=== PATIENT | male | born 1970 | race African-American/Black ===

== ENCOUNTER 2017-03-21 20:41 | Emergency (ER) | payer OTHER ==
[~2017-03-21] VITALS: Ht 188 cm; Wt 108.9 kg
[~2017-03-21 20:41] MED LIST: ACETAMINOPHEN-1 EAC1 ORAL; AMOX TR-K400 MG/5 M ORAL; BACTRIM DS TAB1 EAC1 ORAL; CEPHALEXIN500 MG ORAL; CYCLOBENZAPRINE10 MG ORAL; HYDROCODON-ACE1 EA15 ORAL; IBUPROFEN600 MG ORAL; NORCO 10-325 T1 EACH ORAL; NORCO 5-325 TA1 EAC1 ORAL
[2017-03-21 21:27] VITALS: BP 128/79
[2017-03-21 21:32] LABS: BASOPHILS % (AUTO) 1.1 % (0.0-2.0); EOSINOPHILS % (AUTO) 2.9 % (0.0-3.0); LYMPHOCYTES % (AUTO) 38.6 % (20.0-45.0); MEAN CORPUSCULAR HEMOGLOBIN 31.2 PG (27.0-31.0); MEAN CORPUSCULAR HGB CONC 33.4 G/DL (32.0-36.0); MEAN CORPUSCULAR VOLUME 93 FL (80-99); MEAN PLATELET VOLUME 8.6 FL (6.5-10.1); MONOCYTES % (AUTO) 9.3 % (1.0-10.0); NEUTROPHILS % (AUTO) 48.1 % (45.0-75.0); PLATELET COUNT 178 K/UL (150-450); RED BLOOD COUNT 4.54 M/UL (4.70-6.10); RED CELL DISTRIBUTION WIDTH 11.7 % (11.6-14.8); WHITE BLOOD COUNT 7.3 K/UL (4.8-10.8)
--- NOTE | 2017-03-21 21:43 | Emergency Room Report ---
History of Present Illness General Chief Complaint: Chest Pain Source: Patient Present Illness HPI This is a 46-year-old male with a history of chronic pain secondary to spinal surgery on his neck. He is taking [place]. He presents with chief complaint of chest pressure since yesterday. Constant in nature. Described as a tightness. No nausea no vomiting. No exertional component. No palpitation. No diaphoresis. No shortness of breath. Has not take anything for it. No radiation to the neck or the arm. never Had this problem before. Allergies: Coded Allergies: No Known Allergies (Unverified , 11/28/14) Patient History Past Medical History: see triage record, old chart reviewed Past Surgical History: other Pertinent Family History: none Social History: Reports: drug use - Marijuana, Denies: smoking Immunizations: other Reviewed Nursing Documentation: PMH: Agreed, PSxH: Agreed Nursing Documentation-PMH Hx Cardiac Problems: Yes - CHF Hx Cancer: No Hx Gastrointestinal Problems: No Hx Neurological Problems: No - spinal meningitis Hx Spinal Cord Injury: Yes - Degenerative Spinal Stenosis Review of Systems Eye: Denies: eye pain, blurred vision ENT: Denies: ear pain, nose congestion, throat swelling Respiratory: Denies: cough, shortness of breath Cardiovascular: Reports: chest pain, Denies: palpitations Gastrointestinal: Denies: abdominal pain, diarrhea, nausea, vomiting Musculoskeletal: Denies: back pain, joint pain Skin: Denies: rash Neurological: Denies: headache, numbness Endocrine: Denies: increased thirst, increased urine Hematologic/Lymphatic: Denies: easy bruising All Other Systems: negative except mentioned in HPI Physical Exam Vital Signs Date Time Temp Pulse Resp B/P (MAP) Pulse Ox O2 Delivery O2 Flow Rate FiO2 03/21/17 20:45 98.2 78 18 138/91 99 Room Air vitals normal Sp02 EP Interpretation: reviewed, normal General Appearance: well appearing, no apparent distress, alert Head: normocephalic, atraumatic Eyes: bilateral eye PERRL, bilateral eye EOMI ENT: hearing grossly normal, normal pharynx Neck: full range of motion, supple, no meningismus Respiratory: chest non-tender, lungs clear, normal breath sounds Cardiovascular #1: regular rate, rhythm, no murmur Gastrointestinal: normal bowel sounds, non tender, no mass, no organomegaly, no bruit, non-distended Musculoskeletal: back normal, gait/station normal, normal range of motion Psychiatric: mood/affect normal Skin: warm/dry Medical Decision Making Diagnostic Impression: Primary Impression: Chest pain Qualified Codes: R07.9 - Chest pain, unspecified ER Course Patient presents with atypical chest pain. Troponin negative but CK and CK-MB slightly elevated. No evidence of PE, dissection, pneumonia to name a few. Because of his symptoms and elevated CK-MB, I wanted to admit the patient or transfer the patient for further workup. Patient said he doesn't want to be admitted or transfer. He said he felt better now. No pain now. He wants to go home. I advised the patient to stay for further workup but he refused. He is competent to make a decision. We'll discharge home. Advised patient to followup with his DrJake in one to 2 days for referral to see a fire fighter. Lab Results Impression labs with elevated CK EKG Diagnostic Results Rate: normal Rhythm: NSR ST Segments: no acute changes ASA given to the pt in ED: Yes Rhythm Strip Diag. Results Rhythm Strip Time: 21:43 EP Interpretation: yes Rate: 70 Rhythm: NSR, no PVC's, no ectopy Chest X-Ray Diagnostic Results Chest X-Ray Diagnostic Results : Chest X-Ray Ordered: Yes # of Views/Limited/Complete: 1 View Indication: Chest Pain EP Interpretation: Yes Interpretation: no consolidation, no effusion, no pneumothorax, no acute cardiopulmonary disease Impression: No acute disease Electronically Signed by: Electronically signed by Lake Thayer MD Last Vital Signs Date Time Temp Pulse Resp B/P (MAP) Pulse Ox O2 Delivery O2 Flow Rate FiO2 03/21/17 21:28 75 19 Room Air 03/21/17 21:27 98.2 128/79 100 Status: improved Disposition: HOME, SELF-CARE Condition: Stable Scripts Aspirin* (ASPIRIN*) 81 Mg Tab.chew 81 MG ORAL DAILY, #30 TAB Prov: LAKE THAYER M.D. 03/22/17 Referrals: [facility],REFERRING (PCP) Patient Instructions: Nonspecific Chest Pain Additional Instructions: Followup your DrJake in one to 2 days. No strenuous activity. Call 911 or return for increasing pain or weakness. Return if symptom worsen. Recommend followup with a fire fighter for further cardiac workup like a stress test. LAKE THAYER M.D. Mar 21, 2017 21:43
[2017-03-21 22:03] LABS: TROPONIN I < 0.30 ng/mL (<=0.30)
[2017-03-21 22:07] LABS: ALANINE AMINOTRANSFERASE 23 U/L (3-41); ALBUMIN/GLOBULIN RATIO 1.3 (1.0-2.7); ANION GAP 10 (5-15); ASPARTATE AMINO TRANSFERASE 38 U/L (5-40); CALCIUM 9.1 mg/dL (8.6-10.2); CARBON DIOXIDE 27 mEQ/L (20-30); CHLORIDE 101 mEQ/L (98-107); CREATININE 1.2 mg/dL (0.7-1.2); GLOMERULAR FILTRATION RATE > 60 mL/min (>60); HEMOLYSIS 4; POTASSIUM 3.7 mEQ/L (3.4-4.9); SODIUM 138 mEQ/L (135-145)
[2017-03-21 22:44] LABS: CKMB 8.3 ng/mL (< 6.7)
[2017-03-22 00:18] LABS: TROPONIN I < 0.30 ng/mL (<=0.30)
[2017-03-22] MEDS ORDERED: ASPIRIN81 MG ORAL (00:31)
[2017-03-22 00:32] LABS: CKMB 7.4 ng/mL (< 6.7)
[2017-03-22 00:48] VITALS: BP 123/82
--- NOTE | 2017-03-22 10:43 | Diagnostic Imaging Report ---
Indication: Chest pain Technique: One view of the chest Comparison: none Findings: Hazy infiltrate is seen in the left midlung periphery. The pleural spaces, right lung are clear. Impression: Hazy left midlung infiltrate, nonspecific and may indicate pneumonia. By clinical findings Findings phoned to Dr. Barron in the emergency room at the time of interpretation
== END 2017-03-22 00:50 | disposition home or self-care (01) ==
LOC: EMR 21:07
DX: R07.89 Other chest pain (principal); I50.9 Heart failure, unspecified; Z98.890 Other specified postprocedural states
CPT/HCPCS: 36415; 71010; 80053; 80300; 82550; 82553; 83880; 84484; 85025; 93005; 96360; 99284

== ENCOUNTER 2017-05-19 02:03 | Emergency (ER) | payer OTHER ==
[~2017-05-19] VITALS: Ht 188 cm; Wt 106.6 kg
[~2017-05-19 02:03] MED LIST changes: +ASPIRIN81 MG ORAL
[2017-05-19 02:15] VITALS: BP 131/96
[2017-05-19] MEDS ORDERED: Norco 5mg/325mg tab ORAL ONE (02:15)
[2017-05-19] MEDS ORDERED: Tetanus/Diptheria/Pertussis Vaccine 0.5ml Syr IM ONE (02:15)
--- NOTE | 2017-05-19 02:26 | Emergency Room Report ---
History of Present Illness General Chief Complaint: Laceration Source: Patient Present Illness HPI Is a 46-year-old male who is right-hand dominant. He presents with chief complaint of finger injury. Onset was acute and occurred just prior to arrival. He accidentally closed her car tate onto his finger. He sustained injury to left ring finger. Pain is severe 10 out of 10. No radiation. No other injury. Movement made it worse Allergies: Coded Allergies: No Known Allergies (Unverified , 11/28/14) Patient History Past Medical History: see triage record, old chart reviewed Past Surgical History: other Pertinent Family History: none Social History: Denies: drug use Immunizations: other Reviewed Nursing Documentation: PMH: Agreed, PSxH: Agreed Nursing Documentation-PMH Hx Cardiac Problems: Yes - CHF Hx Cancer: No Hx Gastrointestinal Problems: No Hx Neurological Problems: No - spinal meningitis Hx Spinal Cord Injury: Yes - Degenerative Spinal Stenosis Review of Systems Eye: Denies: eye pain, blurred vision ENT: Denies: ear pain, nose congestion, throat swelling Respiratory: Denies: cough, shortness of breath Cardiovascular: Denies: chest pain, palpitations Gastrointestinal: Denies: abdominal pain, diarrhea, nausea, vomiting Musculoskeletal: Reports: joint pain, Denies: back pain Skin: Denies: rash Neurological: Denies: headache, numbness Endocrine: Denies: increased thirst, increased urine Hematologic/Lymphatic: Denies: easy bruising All Other Systems: negative except mentioned in HPI Physical Exam Vital Signs Date Time Temp Pulse Resp B/P (MAP) Pulse Ox O2 Delivery O2 Flow Rate FiO2 05/19/17 02:05 98.1 89 18 131/96 98 Room Air vitals normal Sp02 EP Interpretation: reviewed, normal General Appearance: well appearing, no apparent distress, alert Head: normocephalic, atraumatic Eyes: bilateral eye PERRL, bilateral eye EOMI ENT: hearing grossly normal, normal pharynx Neck: full range of motion, supple, no meningismus Respiratory: chest non-tender, lungs clear, normal breath sounds Cardiovascular #1: regular rate, rhythm, no murmur Gastrointestinal: normal bowel sounds, non tender, no mass, no organomegaly, no bruit, non-distended Musculoskeletal: back normal, gait/station normal, normal range of motion, other - Left fourth finger: There is about a 1 cm laceration to the base of the nail with the base lifted off of the finger. No obvious bony injury. Sensation normal. There is a 30% subungual hematoma. No active bleeding. Neurologic: alert, oriented x3 Psychiatric: mood/affect normal Skin: warm/dry Procedures Laceration/Wound Repair Laceration/Wound Repair : Consent: Verbal Wound Location: upper extremity Wound's Depth, Shape: into muscle, linear, irregular, flap, stellate, nail- avulsed, contused tissue Wound Length (cm): 2 Wound Explored: clean Irrigated w/ Saline (ccs): 1000 Betadine Prep?: No Anesthesia: 1% Lidocaine Volume Anesthetic (ccs): 3 Wound Debrided: minimal Wound Repaired With: sutures Suture Size/Type: 5:0, proline Number of Sutures: 7 Layer Closure?: No Splint Applied?: Yes Type of Splint Applied: metal finger Patient Tolerated: Well Complications: None Progress I did a digital block with 1% lidocaine without epinephrine. After good anesthesia I explored the wound. I removed didn't know. Skin there is no longer viable. I then the nail back underneath the skin and sutured it into the tissue. A total of 7 interrupted suture done. Afterward a metal splint was placed and wound dressed. Patient tolerated seizure without a problem. I also trephinated the nail to prevent any bloody condition. No Complication. Medical Decision Making Diagnostic Impression: Primary Impression: Nail avulsion, finger Qualified Codes: S61.309A - Unspecified open wound of unspecified finger with damage to nail, initial encounter Additional Impression: Laceration of finger Qualified Codes: S61.317A - Laceration without foreign body of left little finger with damage to nail, initial encounter ER Course Patient with no motion and laceration of the finger. He would lose the fingernail. I did not remove it from the nail bed to use it as a support. He was sutured into the skin. No fracture. Increased risk for infection. We'll discharge home with antibiotics and pain medication. Other X-Ray Diagnostic Results Other X-Ray Diagnostic Results : X-Ray ordered: Left finger x-rays # of Views/Limited Vs Complete: 3 View Indication: Pain EP Interpretation: Yes Interpretation: no dislocation, no soft tissue swelling, no fractures Impression: Other - soft tissue injury. no frx. Last Vital Signs Date Time Temp Pulse Resp B/P (MAP) Pulse Ox O2 Delivery O2 Flow Rate FiO2 05/19/17 02:05 98.1 89 18 131/96 98 Room Air Status: improved Disposition: HOME, SELF-CARE Condition: Stable Scripts Cephalexin* (KEFLEX*) 500 Mg Capsule 500 MG ORAL TID, #21 CAP 0 Refills Prov: IZABEL CARREON M.D. 05/19/17 Hydrocodone/Acetaminophen 5-325* (HYDROCODONE/ACETAMINOPHEN 5-325*) 1 Each Tablet 1 TAB ORAL Q6H Y for For Pain, #30 TAB 0 Refills Prov: IZBAEL CARREON M.D. 05/19/17 Patient Instructions: Laceration Care, Adult Additional Instructions: Followup your Dr. in 7-10 days for recheck. Suture out in 10 days. You would lose your fingernail. It may not grow back. Return for evidence of infection or any concern. IZABEL CARREON M.D. May 19, 2017 02:26
[2017-05-19] MEDS ORDERED: Bacitracin Oint UD TOPIC ONE (03:00)
[2017-05-19] MEDS ORDERED: KEFLEX500 MG ORAL (03:06)
[2017-05-19] MEDS ORDERED: HYDROCODON-ACE1 EA15 ORAL (03:06)
[2017-05-19 03:10] VITALS: BP 131/96
--- NOTE | 2017-05-19 09:39 | Diagnostic Imaging Report ---
Indication: Left finger pain Technique: XRAY FINGERS 2-3V LEFT Comparison: None Findings: There is a soft tissue injury of the fourth digit. Tiny densities measuring approximately 1 mm are noted adjacent to the tuft of the distal phalanx. Bone mineralization is normal. Impression: Soft tissue injury of the fourth digit. Tiny densities measuring approximately 1 mm adjacent to the tuft of the distal phalanx and the possibility of subtle avulsion fracture cannot be excluded. Clinical correlation recommended.
== END 2017-05-19 03:10 | disposition home or self-care (01) ==
LOC: EMR 02:29
DX: S61.315A Laceration without foreign body of left ring finger with damage to nail, initial encounter (principal); Z23 Encounter for immunization; M48.00 Spinal stenosis, site unspecified; I50.9 Heart failure, unspecified; W23.0XXA Caught, crushed, jammed, or pinched between moving objects, initial encounter; Y92.810 Car as the place of occurrence of the external cause
CPT/HCPCS: 12001; 73140; 90471; 90715; 99284; Z7502

== ENCOUNTER 2017-08-05 04:40 | Emergency (ER) | payer OTHER ==
[~2017-08-05] VITALS: Ht 188 cm; Wt 108.9 kg
[~2017-08-05 04:40] MED LIST changes: +KEFLEX500 MG ORAL
[2017-08-05 05:32] VITALS: BP 127/71
[2017-08-05 05:43] LABS: BASOPHILS % (AUTO) 0.5 % (0.0-2.0); EOSINOPHILS % (AUTO) 2.5 % (0.0-3.0); HEMATOCRIT 41.5 % (42.0-52.0); HEMOGLOBIN 14.3 G/DL (14.2-18.0); LYMPHOCYTES % (AUTO) 20.2 % (20.0-45.0); MEAN CORPUSCULAR VOLUME 91 FL (80-99); MONOCYTES % (AUTO) 6.8 % (1.0-10.0); PLATELET COUNT 241 K/UL (150-450); RED BLOOD COUNT 4.54 M/UL (4.70-6.10); RED CELL DISTRIBUTION WIDTH 11.7 % (11.6-14.8); WHITE BLOOD COUNT 10.3 K/UL (4.8-10.8)
--- NOTE | 2017-08-05 05:56 | Emergency Room Report ---
History of Present Illness General Chief Complaint: Chest Pain Source: Patient (VINI HAMMER M.D.) Present Illness HPI 47-year-old male presents ED for evaluation. States he's been having chest pain for last 2 days. Intermitted, squeezing, 4/10, nonradiating. Worse with bending and twisting. States that he has laminectomy in his neck in 2011 and since then has had problems with muscle strain and muscle spasms. Denies heart problems but states he was told he has CHF. Denies shortness of breath. Denies smoking or drug use. No other aggravating relieving factors. Denies any other associated symptoms (VINI HAMMER M.D.) Allergies: Coded Allergies: No Known Allergies (Unverified , 11/28/14) Patient History Past Medical History: CHF Past Surgical History: other - laminectomy Pertinent Family History: none Social History: Denies: smoking, alcohol use, drug use Immunizations: UTD Reviewed Nursing Documentation: PMH: Agreed, PSxH: Agreed (VINI HAMMER M.D.) Nursing Documentation-PMH Past Medical History: No History, Except For Hx Cardiac Problems: Yes - CHF Hx Cancer: No Hx Gastrointestinal Problems: No Hx Neurological Problems: No - Spinal meningitis, Laminectomy Hx Spinal Cord Injury: Yes - Degenerative Spinal Stenosis (VINI HAMMER M.D.) Review of Systems All Other Systems: negative except mentioned in HPI (VINI HAMMER M.D.) Physical Exam Vital Signs Date Time Temp Pulse Resp B/P (MAP) Pulse Ox O2 Delivery O2 Flow Rate FiO2 08/05/17 04:43 98.1 81 16 143/78 97 Room Air Sp02 EP Interpretation: reviewed, normal General Appearance: no apparent distress, alert, GCS 15, non-toxic Head: normocephalic, atraumatic Eyes: bilateral eye normal inspection, bilateral eye PERRL ENT: hearing grossly normal, normal pharynx, no angioedema, normal voice Neck: full range of motion, supple/symm/no masses Respiratory: chest non-tender, lungs clear, normal breath sounds, speaking full sentences Cardiovascular #1: regular rate, rhythm, no edema Cardiovascular #2: 2+ carotid (R), 2+ carotid (L), 2+ radial (R), 2+ radial (L) , 2+ dorsalis pedis (R), 2+ dorsalis pedis (L) Gastrointestinal: normal bowel sounds, non tender, soft, non-distended, no guarding, no rebound Rectal: deferred Genitourinary: normal inspection, no CVA tenderness Musculoskeletal: back normal, gait/station normal, normal range of motion, non- tender Neurologic: alert, oriented x3, responsive, motor strength/tone normal, sensory intact, speech normal Psychiatric: judgement/insight normal, memory normal, mood/affect normal, no suicidal/homicidal ideation Reflexes: 3+ bicep (R), 3+ bicep (L), 3+ tricep (R), 3+ tricep (L), 3+ knee (R) , 3+ knee (L) Skin: normal color, no rash, warm/dry, well hydrated Lymphatic: no adenopathy (VINI HAMMER M.D.) Medical Decision Making Diagnostic Impression: Primary Impression: ACS (acute coronary syndrome) Additional Impression: Lung mass ER Course Please refer to the initial note for the history exam and presentation at this time pending further blood work Patient's x-rays abnormal This was discussed with the patient reports that this was found while he was in long term He had seen a primary physician since he has been out and is getting set up for biopsy However he reports that he does not want to really have this done Given the patient's presentation description Patient will require further inpatient care The area is also concerning for malignancy and requires more emergent intervention and workup At this time patient however reports that he needs to go home he reports that his 90-year-old family member has dementia and sometimes can walk out of the house He understands that leaving at this time can lead to worsening symptoms possible he also understands our concern regarding the lung mass However he is awake, GCS 15, and choosing to leave AGAINST MEDICAL ADVICE Labs Test 08/05/17 05:22 08/05/17 05:35 White Blood Count 10.3 K/UL (4.8-10.8) Red Blood Count 4.54 M/UL (4.70-6.10) Hemoglobin 14.3 G/DL (14.2-18.0) Hematocrit 41.5 % (42.0-52.0) Mean Corpuscular Volume 91 FL (80-99) Mean Corpuscular Hemoglobin 31.4 PG (27.0-31.0) Mean Corpuscular Hemoglobin Concent 34.4 G/DL (32.0-36.0) Red Cell Distribution Width 11.7 % (11.6-14.8) Platelet Count 241 K/UL (150-450) Mean Platelet Volume 7.6 FL (6.5-10.1) Neutrophils (%) (Auto) 70.0 % (45.0-75.0) Lymphocytes (%) (Auto) 20.2 % (20.0-45.0) Monocytes (%) (Auto) 6.8 % (1.0-10.0) Eosinophils (%) (Auto) 2.5 % (0.0-3.0) Basophils (%) (Auto) 0.5 % (0.0-2.0) Sodium Level 136 MMOL/L (136-145) Potassium Level 4.1 MMOL/L (3.5-5.1) Chloride Level 102 MMOL/L (98-107) Carbon Dioxide Level 28 MMOL/L (21-32) Anion Gap 6 mmol/L (5-15) Blood Urea Nitrogen 13 mg/dL (7-18) Creatinine 1.0 MG/DL (0.55-1.30) Estimat Glomerular Filtration Rate > 60 mL/min (>60) Glucose Level 115 MG/DL (74-106) Calcium Level 9.2 MG/DL (8.5-10.1) Total Bilirubin 0.4 MG/DL (0.2-1.0) Aspartate Amino Transf (AST/SGOT) 24 U/L (15-37) Alanine Aminotransferase (ALT/SGPT) 26 U/L (12-78) Alkaline Phosphatase 60 U/L (46-116) Total Creatine Kinase 482 U/L (26-308) Creatine Kinase MB 2.5 NG/ML (0.0-3.6) Creatine Kinase MB Relative Index 0.5 Troponin I 0.000 ng/mL (0.000-0.056) Pro-B-Type Natriuretic Peptide 15 pg/mL (0-125) Total Protein 8.4 G/DL (6.4-8.2) Albumin 3.4 G/DL (3.4-5.0) Globulin 5.0 g/dL Albumin/Globulin Ratio 0.7 (1.0-2.7) Urine Opiates Screen Negative (NEGATIVE) Urine Barbiturates Screen Negative (NEGATIVE) Phencyclidine (PCP) Screen Negative (NEGATIVE) Urine Amphetamines Screen Negative (NEGATIVE) Urine Benzodiazepines Screen Negative (NEGATIVE) Urine Cocaine Screen Negative (NEGATIVE) Urine Marijuana (THC) Screen Positive (NEGATIVE) (ROSANNA SERRANO.Donna) EKG Diagnostic Results Rate: normal Rhythm: NSR ST Segments: no acute changes (VINI HAMMER M.D.) Rhythm Strip Diag. Results EP Interpretation: yes Rhythm: NSR, no PVC's, no ectopy (VINI HAMMER M.D.) EP Interpretation: yes Rate: 74 Rhythm: NSR, no PVC's, no ectopy (ROSANNA SERRANO D.O.) Chest X-Ray Diagnostic Results Chest X-Ray Diagnostic Results : Chest X-Ray Ordered: Yes # of Views/Limited/Complete: 1 View Indication: Chest Pain EP Interpretation: Yes Interpretation: no consolidation, no pneumothorax, other - L lung nodule Impression: Other - L lung nodule Electronically Signed by: Electronically signed by Vini Hammer MD (VINI HAMMER M.D.) Chest X-Ray Diagnostic Results : Chest X-Ray Ordered: Yes # of Views/Limited/Complete: 1 View Indication: Chest Pain EP Interpretation: Yes Interpretation: no effusion, no pneumothorax, other - Left upper lobe mass questionable cavitating lesion centrally, Impression: Other - Left upper lobe mass Electronically Signed by: Rsoanna Serrano DO (ROSANNA SERRANO D.O.) Last Vital Signs Date Time Temp Pulse Resp B/P (MAP) Pulse Ox O2 Delivery O2 Flow Rate FiO2 08/05/17 05:32 98.1 76 19 127/71 99 Room Air Status: improved (VINI HAMMER M.D.) Status: improved (ROSANNA SERRANO D.O.) Disposition: AGAINST MEDICAL ADVICE Condition: Serious VINI HAMMER M.D. Aug 05, 2017 05:56 ROSANNA SERRANO D.O. Aug 05, 2017 07:14
[2017-08-05 06:15] LABS: ANION GAP 6 mmol/L (5-15); BLOOD UREA NITROGEN 13 mg/dL (7-18); CALCIUM 9.2 MG/DL (8.5-10.1); CARBON DIOXIDE 28 MMOL/L (21-32); CHLORIDE 102 MMOL/L (98-107); POTASSIUM 4.1 MMOL/L (3.5-5.1); SODIUM 136 MMOL/L (136-145)
[2017-08-05 06:30] LABS: ALANINE AMINOTRANSFERASE 26 U/L (12-78); ALBUMIN 3.4 G/DL (3.4-5.0); ALBUMIN/GLOBULIN RATIO 0.7 (1.0-2.7); ALKALINE PHOSPHATASE 60 U/L (46-116); ASPARTATE AMINO TRANSFERASE 24 U/L (15-37); BILIRUBIN,TOTAL 0.4 MG/DL (0.2-1.0); CKMB 2.5 NG/ML (0.0-3.6); CREATINE KINASE 482 U/L (26-308)
[2017-08-05 06:59] VITALS: BP 142/84
--- NOTE | 2017-08-05 10:42 | Diagnostic Imaging Report ---
Indication: Chest pain Technique: XRAY Chest 1v Comparison: 03/21/2017 Findings: Heart is enlarged. Mediastinal contours are sharp. In the left upper lung there is a rounded opacity measuring up to 7 cm. The possibility of neoplasm intrapulmonary or extrapulmonary not entirely excluded. No pleural effusion. No pneumothorax. No acute osseous abnormality. Impression: 7 cm opacity in the left upper lung most concerning for neoplasm. It is uncertain whether this is intrapulmonary or extrapulmonary. Further evaluation with CT scan of the chest recommended. This corresponds with the preliminary interpretation of the treating ER physician, as documented in the electronic medical record.
--- NOTE | 2017-08-06 19:32 | Cardiology Report ---
APPROVED REPORT EKG Measurement Heart [id number] Normal sinus rhythm Possible Left atrial enlargement Borderline ECG
== END 2017-08-05 06:55 | disposition left against medical advice (07) ==
LOC: EMR 05:30
DX: I24.9 Acute ischemic heart disease, unspecified (principal); R91.8 Other nonspecific abnormal finding of lung field; I50.9 Heart failure, unspecified; M48.00 Spinal stenosis, site unspecified; Z86.61 Personal history of infections of the central nervous system
CPT/HCPCS: 36415; 71045; 80053; 80307; 82550; 82553; 83880; 84484; 85025; 93005; 99284

== ENCOUNTER 2018-04-15 02:06 | Emergency (ER) | payer OTHER ==
[~2018-04-15] VITALS: Ht 188 cm; Wt 108.9 kg
[2018-04-15 02:24] VITALS: BP 121/73
[2018-04-15] MEDS ORDERED: Bactrim-DS 1 tab ONE (02:35)
[2018-04-15] MEDS ORDERED: MUPIROCIN22 GM TOPIC (02:42)
[2018-04-15] MEDS ORDERED: BACTRIM DS TAB1 EAC1 ORAL (02:42)
--- NOTE | 2018-04-15 02:43 | Emergency Room Report ---
History of Present Illness General Chief Complaint: Skin Rash/Abscess Source: Patient Present Illness HPI Is a 47-year-old male with history of CHF. He presents with chief complaint of the bug bites and a rash. Onset around Sunday after he visit his girlfriend. He said that they had to get extermination out on Sunday. He had bites all over his body and face. He's been scratching. now getting worse. No fever chills but no drainage. Denies any other complaint. Allergies: Coded Allergies: No Known Allergies (Unverified , 11/28/14) Patient History Past Medical History: see triage record, old chart reviewed, CHF Past Surgical History: none Pertinent Family History: none Social History: Denies: smoking Immunizations: other Reviewed Nursing Documentation: PMH: Agreed; PSxH: Agreed Nursing Documentation-PMH Past Medical History: No History, Except For Hx Cardiac Problems: Yes - CHF Hx Cancer: No Hx Gastrointestinal Problems: No Hx Neurological Problems: No - Spinal meningitis, Laminectomy Hx Spinal Cord Injury: Yes - Degenerative Spinal Stenosis Review of Systems Eye: Denies: eye pain, blurred vision ENT: Denies: ear pain, nose congestion, throat swelling Respiratory: Denies: cough, shortness of breath Cardiovascular: Denies: chest pain, palpitations Gastrointestinal: Denies: abdominal pain, diarrhea, nausea, vomiting Musculoskeletal: Denies: back pain, joint pain Skin: Reports: rash Neurological: Denies: headache, numbness Endocrine: Denies: increased thirst, increased urine Hematologic/Lymphatic: Denies: easy bruising All Other Systems: negative except mentioned in HPI Physical Exam Vital Signs Date Time Temp Pulse Resp B/P (MAP) Pulse Ox O2 Delivery O2 Flow Rate FiO2 04/15/18 02:20 98.2 77 16 121/73 95 Room Air 98.2 vitals normal Sp02 EP Interpretation: reviewed, normal General Appearance: well appearing, no apparent distress, alert Head: normocephalic, atraumatic Eyes: bilateral eye PERRL, bilateral eye EOMI ENT: hearing grossly normal, normal pharynx Neck: full range of motion, supple, no meningismus Respiratory: chest non-tender, lungs clear, normal breath sounds Cardiovascular #1: regular rate, rhythm, no murmur Gastrointestinal: normal bowel sounds, non tender, no mass, no organomegaly, no bruit, non-distended Musculoskeletal: back normal, gait/station normal, normal range of motion Neurologic: alert, oriented x3 Psychiatric: mood/affect normal Skin: warm/dry, rash - Patient with scattered erythematous rash on arms. There is surrounding erythema. No drainage. No crepitus Medical Decision Making Diagnostic Impression: Primary Impression: Cellulitis Qualified Codes: L03.119 - Cellulitis of unspecified part of limb ER Course pt with cellulitis. no e/o abscess or necrotizing fascititis. Last Vital Signs Date Time Temp Pulse Resp B/P (MAP) Pulse Ox O2 Delivery O2 Flow Rate FiO2 04/15/18 02:24 98.2 77 16 121/73 95 Room Air 98.2 Status: unchanged Disposition: HOME, SELF-CARE Condition: Stable Scripts Mupirocin* (MUPIROCIN*) 22 Gm Oint...g. 1 APPLIC TOPIC THREE TIMES A DAY, #22 GM Prov: Lake Thayer MD 04/15/18 Trimethoprim/Sulfamethoxazole 160/800* (BACTRIM DS TABLET*) 1 Each Tablet 1 TAB ORAL Q12H, #14 TAB 0 Refills Prov: Lake Thayer MD 04/15/18 Referrals: NON PHYSICIAN (PCP) Additional Instructions: Clean area with hydrogen peroxide. Then apply antibiotic ointment. Follow-up with your Dr. in 2-3 days for recheck if not better. Return if worse. Lake Thayer MD Apr 15, 2018 02:43
[2018-04-15] MEDS ORDERED: Bactrim-DS 1 tab ORAL ONE (02:45)
[2018-04-15 02:49] VITALS: BP 121/73
== END 2018-04-15 02:50 | disposition home or self-care (01) ==
LOC: EMR 02:34
DX: L03.114 Cellulitis of left upper limb (principal); L03.113 Cellulitis of right upper limb; I50.9 Heart failure, unspecified
CPT/HCPCS: 99283

== ENCOUNTER 2018-05-02 02:30 | Emergency (ER) | payer OTHER ==
[~2018-05-02] VITALS: Ht 188 cm; Wt 108.9 kg
[~2018-05-02 02:30] MED LIST changes: +MUPIROCIN22 GM TOPIC
[2018-05-02] MEDS ORDERED: NORCO 10-325 T1 EACH ORAL (02:47)
[2018-05-02] MEDS ORDERED: CLINDAMYCIN HC300 MG ORAL (02:59)
[2018-05-02] MEDS ORDERED: Clindamycin 150mg cap ORAL ONE (03:00)
--- NOTE | 2018-05-02 03:00 | Emergency Room Report ---
History of Present Illness General Chief Complaint: Skin Rash/Abscess Source: Patient Present Illness [facility] This is a 47-year-old male who presents with chief complaint of abscess. I saw him last week for abscess on his left arm and prescribed him Bactrim and Bactroban. He said is not getting better. No fever chills but no drainage. No nausea no vomiting. Denies any other complaint. Itching but no pain. Allergies: Coded Allergies: No Known Allergies (Unverified , 11/28/14) Patient History Past Medical History: see triage record, old chart reviewed Past Surgical History: none Pertinent Family History: none Social History: Reports: smoking Immunizations: other Reviewed Nursing Documentation: PMH: Agreed; PSxH: Agreed Nursing Documentation-PMH Hx Cardiac Problems: Yes - CHF Hx Cancer: No Hx Gastrointestinal Problems: No Hx Neurological Problems: No - Spinal meningitis, Laminectomy Hx Spinal Cord Injury: Yes - Degenerative Spinal Stenosis Review of Systems Eye: Denies: eye pain, blurred vision ENT: Denies: ear pain, nose congestion, throat swelling Respiratory: Denies: cough, shortness of breath Cardiovascular: Denies: chest pain, palpitations Gastrointestinal: Denies: abdominal pain, diarrhea, nausea, vomiting Musculoskeletal: Denies: back pain, joint pain Skin: Reports: rash Neurological: Denies: headache, numbness Endocrine: Denies: increased thirst, increased urine Hematologic/Lymphatic: Denies: easy bruising All Other Systems: negative except mentioned in HPI Physical Exam Vital Signs Date Time Temp Pulse Resp B/P (MAP) Pulse Ox O2 Delivery O2 Flow Rate FiO2 05/02/18 02:42 98.1 65 16 128/83 95 Room Air vitals normal Sp02 EP Interpretation: reviewed, normal General Appearance: well appearing, no apparent distress, alert Head: normocephalic, atraumatic Eyes: bilateral eye PERRL, bilateral eye EOMI ENT: hearing grossly normal, normal pharynx Neck: full range of motion, supple, no meningismus Respiratory: chest non-tender, lungs clear, normal breath sounds Cardiovascular #1: regular rate, rhythm, no murmur Gastrointestinal: normal bowel sounds, non tender, no mass, no organomegaly, no bruit, non-distended Musculoskeletal: back normal, gait/station normal, normal range of motion Neurologic: alert, oriented x3 Psychiatric: mood/affect normal Skin: warm/dry, other - Left arm with cervical lesion on the forearm and the webspace between the third and fourth finger. There is some erythema and slight oozing. No pus. He has a similar lesion on his lower lip. No crepitance. Medical Decision Making Diagnostic Impression: Primary Impression: Cellulitis of upper extremity Qualified Codes: L03.114 - Cellulitis of left upper limb ER Course Patient presents with a cellulitis. No evidence of abscess or necrotizing fasciitis. We will change antibiotics. We'll discharge home. There is no dermatome to indicate herpes infection. Last Vital Signs Date Time Temp Pulse Resp B/P (MAP) Pulse Ox O2 Delivery O2 Flow Rate FiO2 05/02/18 02:42 98.1 65 16 128/83 95 Room Air Status: improved Disposition: HOME, SELF-CARE Condition: Stable Scripts Clindamycin Hcl (CLINDAMYCIN HCL) 300 Mg Capsule 300 MG ORAL THREE TIMES A DAY, #21 CAP Prov: Lake Thayer MD 05/02/18 Additional Instructions: Follow-up with your doctor in 7 days for recheck. Return if worse. Lake Thayer MD May 02, 2018 03:00
[2018-05-02 03:04] VITALS: BP 119/80
[2018-05-02 03:11] VITALS: BP 119/80
[2018-05-02] MEDS ORDERED: MUPIROCIN22 GM TOPIC (03:50)
== END 2018-05-02 03:15 | disposition home or self-care (01) ==
LOC: EMR 02:57
DX: L03.114 Cellulitis of left upper limb (principal); I50.9 Heart failure, unspecified; F17.200 Nicotine dependence, unspecified, uncomplicated
CPT/HCPCS: 87070; 87205; 99282

== ENCOUNTER 2018-05-22 07:22 | Emergency (ER) | payer OTHER ==
[~2018-05-22] VITALS: Ht 188 cm; Wt 108.9 kg
[~2018-05-22 07:22] MED LIST changes: +CLINDAMYCIN HC300 MG ORAL
[2018-05-22 07:26] VITALS: BP 116/79
[2018-05-22 07:48] VITALS: BP 116/79
--- NOTE | 2018-05-22 07:48 | Emergency Room Report ---
History of Present Illness General Chief Complaint: Skin Rash/Abscess Present Illness HPI 47 M with ongoing rash to arms. He has been here for the same and he has been to his primary. He returns b/c rash still present. No clear dx. yet. He has been treated with Clindamycin, Bactrim, Bactroban. No fever. No trauma. Pt. thought it was bedbugs. Allergies: Coded Allergies: No Known Allergies (Unverified , 11/28/14) Nursing Documentation-PMH Hx Cardiac Problems: Yes - CHF Hx Cancer: No Hx Gastrointestinal Problems: No Hx Neurological Problems: No - Spinal meningitis, Laminectomy Hx Spinal Cord Injury: Yes - Degenerative Spinal Stenosis Review of Systems Skin: Reports: see HPI, rash Physical Exam Vital Signs Date Time Temp Pulse Resp B/P (MAP) Pulse Ox O2 Delivery O2 Flow Rate FiO2 05/22/18 07:26 98.8 77 18 116/79 98 Room Air General Appearance: well appearing, no apparent distress Head: normocephalic, atraumatic ENT: hearing grossly normal, normal voice Neck: full range of motion, supple Respiratory: no respiratory distress, speaking full sentences Musculoskeletal: no calf tenderness Neurologic: alert, normal gait Psychiatric: mood/affect normal Skin: no rash, other - several areas of mildly erythematous base, surrounding small blisters; some of these areas are dry some a little oozing. most prominent is right dorsum hand but also left forearm Medical Decision Making Diagnostic Impression: Primary Impression: Skin infection ER Course I do not have a specific diagnosis for this patient; there is no cellulitis. I advised patient he would need a specialist and PMD would have to refer to Derm as I don't have derm available and it's not an emergency. Pt. cursed me. Nonetheless I have nothing specific to offer. There is no emergency situation ( no abscess, no cellulitis and certainly nothing life threatening like TEN, nec fasc) not herpes dermatome. Most likely is an over-sensitivity/allergic reaction to some triggering event. Last Vital Signs Date Time Temp Pulse Resp B/P (MAP) Pulse Ox O2 Delivery O2 Flow Rate FiO2 05/22/18 07:26 98.8 77 18 116/79 98 Room Air Status: unchanged Disposition: HOME, SELF-CARE Condition: Stable Patient Instructions: Edwardo Church M.D. May 22, 2018 07:48
== END 2018-05-22 07:48 | disposition home or self-care (01) ==
LOC: EMR 07:44
DX: L08.9 Local infection of the skin and subcutaneous tissue, unspecified (principal); I50.9 Heart failure, unspecified; M48.00 Spinal stenosis, site unspecified
CPT/HCPCS: 99282

== ENCOUNTER 2019-05-22 05:57 | Emergency (ER) | payer OTHER ==
[~2019-05-22] VITALS: Ht 188 cm; Wt 108.9 kg
[2019-05-22 06:04] VITALS: BP 150/95
--- NOTE | 2019-05-22 06:04 | NUR ---
ED Nurse Note: Walk-in patiet with complaints of chest pain, ambulatory with impaired gait due to spinal surgery. Patient appears to be in pain, facial grimacing and guarding upon arrival. Patient confirms onging chest pain for at least 3 months. Will continue to monitor and service impending orders.
[2019-05-22] MEDS ORDERED: Ketorolac 30mg Inj IV ONE (06:15)
[2019-05-22] MEDS ORDERED: Omnipaque-300 100ml vial INJ ONE (06:15)
--- NOTE | 2019-05-22 06:17 | Emergency Room Report ---
History of Present Illness General Chief Complaint: Chest Pain Source: Patient Present Illness HPI Is a 48-year-old male with history of previous spinal surgery. He presents with chief complaint of chest pain. Pain is on the right side of his chest but is been ongoing for the last year and a half. He said it is sharp in nature. Will radiate from the front to the back. This whole right side of the chest area. He said he was in [facility] about a year and a half ago and had x-ray done which show some spots in his right side of the lung. He was told that this could be TB or cancer. He had a PPD testing that was negative. He just got out of sn[facility]. He was referred to a primary care doctor. He has authorization for chest x-ray but I will be done until after the holidays. He still has sharp chest pain. Pain is 8 out of 10. No fever chills. no nausea no vomiting. Allergies: Coded Allergies: No Known Allergies (Unverified , 11/28/14) Patient History Past Medical History: see triage record, old chart reviewed Past Surgical History: other Pertinent Family History: none Social History: Denies: smoking Immunizations: other Reviewed Nursing Documentation: PMH: Agreed; PSxH: Agreed Nursing Documentation-PMH Past Medical History: No History, Except For Hx Cardiac Problems: Yes - CHF Hx Cancer: No Hx Gastrointestinal Problems: No Hx Neurological Problems: No - Spinal meningitis, Laminectomy Hx Spinal Cord Injury: Yes - Degenerative Spinal Stenosis Review of Systems Eye: Denies: eye pain, blurred vision ENT: Denies: ear pain, nose congestion, throat swelling Respiratory: Denies: cough, shortness of breath Cardiovascular: Reports: chest pain; Denies: palpitations Gastrointestinal: Denies: abdominal pain, diarrhea, nausea, vomiting Musculoskeletal: Denies: back pain, joint pain Skin: Denies: rash Neurological: Denies: headache, numbness Endocrine: Denies: increased thirst, increased urine Hematologic/Lymphatic: Denies: easy bruising All Other Systems: negative except mentioned in HPI Physical Exam Vital Signs Date Time Temp Pulse Resp B/P (MAP) Pulse Ox O2 Delivery O2 Flow Rate FiO2 05/22/19 06:04 97.2 59 22 150/95 (113) 100 Room Air Vitals with high blood pressure Sp02 EP Interpretation: reviewed, normal General Appearance: well appearing, no apparent distress, alert Head: normocephalic, atraumatic Eyes: bilateral eye PERRL, bilateral eye EOMI ENT: hearing grossly normal, normal pharynx Neck: full range of motion, supple, no meningismus Respiratory: chest non-tender, lungs clear, normal breath sounds Cardiovascular #1: regular rate, rhythm, no murmur Gastrointestinal: normal bowel sounds, non tender, no mass, no organomegaly, no bruit, non-distended Musculoskeletal: back normal, normal range of motion, gait/station normal Psychiatric: mood/affect normal Medical Decision Making Diagnostic Impression: Primary Impression: Chest pain Qualified Codes: R07.9 - Chest pain, unspecified Additional Impression: Lung mass ER Course Patient presents with chest pain. This is chronic in nature. He had chest x- ray in 2017 here that showed left upper lobe mass. Patient never follow-up. Now he has reported right lung dark spots per patient. This is likely to be metastatic. I told patient when to get a CT with IV contrast but he refused IV contrast. We will get noncontrast study. As of ACS, PE, dissection name a few. Patient will be discharged home after CT scan report. He will need follow-up and biopsy. He claimed that he has an appointment with a specialist after the holiday. EKG Diagnostic Results Rate: normal Rhythm: NSR ST Segments: no acute changes ASA given to the pt in ED: No Rhythm Strip Diag. Results EP Interpretation: yes Rate: 56 Rhythm: NSR, no PVC's, no ectopy CT/MRI/US Diagnostic Results CT/MRI/US Diagnostic Results : Imaging Test Ordered: CT chest Impression Read by radiologist. scarring in TRISHA. Last Vital Signs Date Time Temp Pulse Resp B/P (MAP) Pulse Ox O2 Delivery O2 Flow Rate FiO2 05/22/19 06:04 97.2 59 22 150/95 (113) 100 Room Air Status: improved Disposition: HOME, SELF-CARE Condition: Stable Scripts Ibuprofen* (MOTRIN*) 600 Mg Tablet 600 MG ORAL THREE TIMES A DAY, #30 TAB 0 Refills Prov: Lake Thayer MD 05/22/19 Additional Instructions: Follow-up with your doctor for work-up on your lung mass. Lung cancer need to be ruled out. Follow up your doctor in 7 days. Return if symptoms worsen. Lake Thayer MD May 22, 2019 06:17
--- NOTE | 2019-05-22 06:30 | NUR ---
ED Nurse Note: blood specimen collected and walked down to lab, urine speciment pending void. patient voided prior to arrival. Will conwinute to monitor.
[2019-05-22 06:34] LABS: ANION GAP 7 mmol/L (5-15); BLOOD UREA NITROGEN 11 mg/dL (7-18); CALCIUM 8.7 MG/DL (8.5-10.1); CARBON DIOXIDE 29 MMOL/L (21-32); CHLORIDE 105 MMOL/L (98-107); CREATININE 1.1 MG/DL (0.55-1.30); POTASSIUM 3.7 MMOL/L (3.5-5.1); SODIUM 141 MMOL/L (136-145)
--- NOTE | 2019-05-22 06:39 | NUR ---
ED Nurse Note: Patient refused CT with contrast citing traumatic experience and refusal to have anything put into his body. Patient went over with oil and gas field technician for CT without contrast. Will continue to monitor.
[2019-05-22 06:48] LABS: HEMOGLOBIN 15.4 G/DL (14.2-18.0); LYMPHOCYTES % (AUTO) 46.2 % (20.0-45.0); MEAN CORPUSCULAR VOLUME 89 FL (80-99); MONOCYTES % (AUTO) 10.6 % (1.0-10.0); PLATELET COUNT 205 K/UL (150-450); RED BLOOD COUNT 4.85 M/UL (4.70-6.10); RED CELL DISTRIBUTION WIDTH 11.5 % (11.6-14.8); WHITE BLOOD COUNT 6.2 K/UL (4.8-10.8)
[2019-05-22] MEDS ORDERED: IBUPROFEN600 MG ORAL (06:53)
--- NOTE | 2019-05-22 07:05 | NUR ---
HAND-OFF: Report given to SHANIA alonso.
[2019-05-22] MEDS ORDERED: Acetaminophen 500mg (ES) tab ORAL ONE (07:15)
--- NOTE | 2019-05-22 07:24 | Diagnostic Imaging Report ---
EXAM: CT Chest Without Intravenous Contrast CLINICAL HISTORY: Chest pain TECHNIQUE: Axial computed tomography images of the chest without intravenous contrast. CTDI is 17.7 mGy and DLP is 794 mGy-cm. One or more of the following dose reduction techniques were used: automated exposure control, adjustment of the mA and/or kV according to patient size, use of iterative reconstruction technique. COMPARISON: No relevant prior studies available. FINDINGS: Lungs: There is a bandlike region of moderate nodular parenchymal scarring in the left upper lobe, extending to the pleural margin, with probable focal traction bronchiectasis. The lungs are otherwise well- inflated. No acute airspace consolidation or pulmonary edema. Pleural space: Unremarkable. No pneumothorax. No significant effusion. Heart: Unremarkable. No cardiomegaly. No significant pericardial effusion. Bones/joints: No acute fracture. No dislocation. Soft tissues: Unremarkable. Vasculature: Unremarkable. No thoracic aortic aneurysm. Lymph nodes: Unremarkable. No enlarged lymph nodes. IMPRESSION: Left upper lobe parenchymal nodular scarring, most likely associated with prior infection or bronchial obstruction at this site. Consider short- term follow-up CT chest within 6-12 months for reevaluation. Alternatively if the patient has any prior chest CTs available, this would help in establishing benignity.
[2019-05-22 07:46] VITALS: BP 149/90
--- NOTE | 2019-05-22 07:46 | NUR ---
ER DISCHARGE NOTE: Patient is cleared to be discharged per ERMD, pt is aox4, on room air, with stable vital signs. pt was given dc and prescription instructions, pt was able to verbalize understanding, pt id band and iv site removed without complications. pt is able to ambulate with steady gait. pt took all belongings.
== END 2019-05-22 07:46 | disposition home or self-care (01) ==
LOC: EMR 06:56
DX: R07.9 Chest pain, unspecified (principal); R91.8 Other nonspecific abnormal finding of lung field; I50.9 Heart failure, unspecified; M48.00 Spinal stenosis, site unspecified
CPT/HCPCS: 71250; 80048; 84484; 85025; 93005; Z7502; 99284

== ENCOUNTER 2019-11-15 20:55 | Emergency (ER) | payer OTHER ==
[~2019-11-15] VITALS: Ht 188 cm; Wt 113.4 kg
[2019-11-15 21:15] VITALS: BP 144/94
--- NOTE | 2019-11-15 21:17 | NUR ---
ED Nurse Note: Patient wallked in to ER from home c/o lesion on forehead with s/s of reaction with swollen eyes. Patient thinks possible insect bite, noted sunday and worsening. Patient stated painful to touch at 6/10. Patient presented calm VSS at this time. ER MD at bed side.
--- NOTE | 2019-11-15 21:28 | NUR ---
ED Nurse Note: patient was taken to CT
--- NOTE | 2019-11-15 21:39 | NUR ---
ED Nurse Note: Patient is back from CT
--- NOTE | 2019-11-15 21:43 | Diagnostic Imaging Report ---
EXAM: CT Head Without Intravenous Contrast CLINICAL HISTORY: PAIN TECHNIQUE: Axial computed tomography images of the head/brain without intravenous contrast. CTDI is 53 mGy and DLP is 1035 mGy-cm. One or more of the following dose reduction techniques were used: automated exposure control, adjustment of the mA and/or kV according to patient size, use of iterative reconstruction technique. COMPARISON: No relevant prior studies available. FINDINGS: Brain: Unremarkable. No hemorrhage. No significant white matter disease. No edema. Ventricles: Unremarkable. No ventriculomegaly. Bones/joints: Unremarkable. No acute fracture. Soft tissues: Left frontal scalp 1.6 cm subcutaneous nodularity could represent epidermal inclusion cyst, correlate with physical exam. Sinuses: Unremarkable as visualized. No acute sinusitis. Mastoid air cells: Unremarkable as visualized. No mastoid effusion. Other findings: Otherwise unremarkable for age unenhanced CT head. IMPRESSION: 1. No acute intracranial abnormality. 2. Left frontal scalp 1.6 cm subcutaneous nodularity could represent epidermal inclusion cyst, correlate with physical exam. 3. Otherwise unremarkable for age unenhanced CT head.
[2019-11-15] MEDS ORDERED: BENADRYL25 MG ORAL (21:52)
[2019-11-15] MEDS ORDERED: PREDNISONE20 MG ORAL (21:52)
[2019-11-15 22:00] VITALS: BP 144/94
--- NOTE | 2019-11-15 22:02 | NUR ---
ED Nurse Note: Pt cleared by health care Provider for discharge. DC instructions/prescription was given and explained to pt and verbalized understanding of teachings. All medical deviecs such as ID band removed. Pt is AAO x4, ambulatory and left with all personal belongings.
--- NOTE | 2019-11-16 13:36 | Emergency Room Report ---
History of Present Illness General Chief Complaint: General Complaint Present Illness HPI Patient is a 49-year-old male presents after increased facial swelling. Patient reports having recent injury to his head in which a small shoe box with heavy objects struck the forehead. He reports have increased discomfort to his forehead associated with some increased swelling. Denies any fever. Denies any change in vision. Had been having increased eyelid and facial swelling. Reports of increased crusting to both eyes. Denies any recent aspirin or NSAID use. Denies any headache or vomiting. Denies any neck pain or photophobia. Allergies: Coded Allergies: No Known Allergies (Unverified , 11/28/14) COVID-19 Screening Contact w/high risk pt: No Recent Travel to affected area: No Experienced COVID-19 symptoms?: No COVID-19 Testing performed SHIPPING ORDER CLERK: No Patient History Past Medical History: see triage record Reviewed Nursing Documentation: PMH: Agreed; PSxH: Agreed Nursing Documentation-PMH Hx Cardiac Problems: Yes - CHF Hx Cancer: No Hx Gastrointestinal Problems: No Hx Neurological Problems: No - Spinal meningitis, Laminectomy Hx Spinal Cord Injury: Yes - Degenerative Spinal Stenosis Review of Systems All Other Systems: negative except mentioned in HPI Physical Exam Vital Signs Date Time Temp Pulse Resp B/P (MAP) Pulse Ox O2 Delivery O2 Flow Rate FiO2 11/15/19 21:04 98.2 74 18 144/94 (111) 97 Room Air General Appearance: well appearing, no apparent distress, alert, GCS 15 Head: other - Frontal forehead swelling. Eyes: bilateral eye other - Bilateral eyelid swelling with normal EOMs and normal pupillary size vision at baseline per patient. ENT: hearing grossly normal, normal voice Neck: full range of motion, supple Respiratory: chest non-tender, lungs clear, no respiratory distress, speaking full sentences Cardiovascular #1: normal inspection, no gallop Gastrointestinal: normal inspection Musculoskeletal: normal inspection, no calf tenderness Neurologic: alert, motor strength/tone normal, curling machine operator III-XII nml as tested, oriented x3, normal gait Psychiatric: mood/affect normal Skin: other - Forehead swelling with induration without fluctuance Medical Decision Making Diagnostic Impression: Primary Impression: Facial contusion Additional Impression: Allergic reaction ER Course Patient presented for facial swelling and forehead pain. Differential diagnosis included but was not limited to cellulitis, abscess, contusion, allergic reaction among others. CT imaging was ordered to patient's significant swelling and recent trauma. CT imaging read by radiology showed no evidence of acute fracture Patient was noted to have normal EOMs and does not appear to have any evidence of systemic toxicity. Patient's swelling suggests that the patient may have allergic reaction. No signs of respiratory distress. Patient given steroids as well as prescription for antihistamines. He was advised to recheck in 2 days. He is advised to return if worse. The patient is advised to follow up with primary care doctor in 1-2 days. Patient is advised to return if any worsening condition or if any changes in status that are concerning. This report is dictated with [employer] event specialist software which may occasionally lead to discrepancies related to use of this software. Last Vital Signs Date Time Temp Pulse Resp B/P (MAP) Pulse Ox O2 Delivery O2 Flow Rate FiO2 11/15/19 22:00 98.2 18 144/94 97 Room Air 11/15/19 21:15 74 Status: improved Disposition: HOME, SELF-CARE Condition: Stable Scripts Diphenhydramine Hcl* (BENADRYL*) 25 Mg Capsule 25 MG ORAL Q6H PRN for Itching, #30 CAP Prov: Dallas Perez MD 11/15/19 Prednisone* (PREDNISONE*) 20 Mg Tablet 40 MG ORAL DAILY, #10 TAB Prov: Dallas Perez MD 11/15/19 Referrals: OTHER,REFERRING Patient Instructions: Facial or Scalp Contusion, Allergic Conjunctivitis Additional Instructions: Follow up for recheck in 2-3 days. Return if worse. Don't take antihistamines and drive. Dallas Perez MD November 16, 2019 13:36
== END 2019-11-15 22:03 | disposition home or self-care (01) ==
LOC: EMR 21:15
DX: S00.83XA Contusion of other part of head, initial encounter (principal); T78.40XA Allergy, unspecified, initial encounter; X58.XXXA Exposure to other specified factors, initial encounter; W22.8XXA Striking against or struck by other objects, initial encounter; Y92.9 Unspecified place or not applicable; I50.9 Heart failure, unspecified; Z86.61 Personal history of infections of the central nervous system
CPT/HCPCS: 70450; J7512; Z7502; 99284